=== PATIENT | female | born 1990 | race Caucasian/White ===

== ENCOUNTER 2016-09-26 10:43 | Emergency (ER) | payer MEDICAID ==
[2013-08-30 22:11] VITALS: BMI 32.3
[~2016-09-26 10:43] MED LIST: HYDROCODON-ACE1 EAC7 PO
== END 2016-09-26 11:34 | disposition home or self-care (01) ==
LOC: D.ER 10:43
DX: S76.911A Strain of unspecified muscles, fascia and tendons at thigh level, right thigh, initial encounter (principal); X58.XXXA Exposure to other specified factors, initial encounter; Y93.89 Activity, other specified; Y92.89 Other specified places as the place of occurrence of the external cause

== ENCOUNTER 2018-10-10 12:01 | Emergency (ER) | payer MEDICAID ==
[~2018-10-10] VITALS: Ht 167.6 cm; Wt 90.9 kg
[2018-10-10 12:11] VITALS: Ht 167.6 cm; Wt 90.9 kg
[2018-10-10] MEDS ORDERED: ZOFRAN ODT4 MG/UDTAB PO (13:04)
[2018-10-10] MEDS ORDERED: LOMOTIL 2.5-0.1 EAC1 PO (13:04)
[2018-10-10 14:32] VITALS: BP 112/52
== END 2018-10-10 14:33 | disposition home or self-care (01) ==
LOC: D.ER 12:01
DX: R11.10 Vomiting, unspecified (principal); R19.7 Diarrhea, unspecified

== ENCOUNTER 2019-02-04 18:57 | Emergency (ER) | payer MEDICAID ==
[~2019-02-04] VITALS: Ht 167.6 cm; Wt 86.4 kg
[~2019-02-04 18:57] MED LIST changes: +LOMOTIL 2.5-0.1 EAC1 PO; +ZOFRAN ODT4 MG/UDTAB PO
[2019-02-04 19:02] VITALS: Ht 167.6 cm; Wt 86.4 kg
[2019-02-04 19:31] LABS: BASOPHILS 0.3 % (0-2); HEMATOCRIT 38.9 % (36.0-48.0); IMMATURE GRANULOCYTES 0.2 % (0-5); LYMPHOCYTES 31.6 % (15-50); MCH 31.4 pg (26.0-34.0); MCHC 33.4 g/dL (31.0-37.0); MEAN PLATELET VOLUME 10.2 fL (7.4-10.4); MONOCYTES 7.8 % (2-11); NEUTROPHILS 57.1 % (40-80); RBC 4.14 10x6/uL (4.00-5.40); RDW 13.7 % (11.5-14.5); WBC 15.2 10x3/uL (4.8-10.8)
[2019-02-04 19:34] LABS: PLATELET COUNT 389 10x3/uL (130-400)
[2019-02-04 19:39] LABS: APPEARANCE CLEAR (CLEAR); BILIRUBIN NEGATIVE (NEGATIVE); COLOR YELLOW (YELLOW); GLUCOSE NEGATIVE (NEGATIVE); HCG URINE NEGATIVE (NEGATIVE); KETONE NEGATIVE (NEGATIVE); NITRITE NEGATIVE (NEGATIVE); PROTEIN NEGATIVE (NEGATIVE); UROBILINOGEN NORMAL (NORMAL)
[2019-02-04 19:47] LABS: CALC OSMOLALITY 279 mosm/kg (275-300); CALCIUM 8.9 mg/dL (8.5-10.1); CARBON DIOXIDE 27.4 mmol/L (21.0-32.0); CHLORIDE - SERUM 105 mmol/L (98-107); CREATININE - SERUM 0.8 mg/dL (0.6-1.3); GLUCOSE 87 mg/dL (74-106); SODIUM 140 mmol/L (136-145); UREA NITROGEN 19 mg/dL (7-18); eGFR NON AFRICAN AMERICAN > 90 mL/min (90-120)
[2019-02-04 19:55] LABS: ALKALINE PHOSPHATASE 97 U/L (46-116); ALT (SGPT) 33 U/L (10-68); AMYLASE - SERUM 93 U/L (25-115); BILIRUBIN - TOTAL 0.12 mg/dL (0.2-1.3); LIPASE 100 U/L (73-393); PROTEIN - SERUM 7.8 g/dL (6.4-8.2)
[2019-02-04 19:58] LABS: TROPONIN-I < 0.017 ng/mL (0.000-0.060)
[2019-02-04] MEDS ORDERED: HYDROCODONE-A1 UDTA2 PO ×2 (22:54→23:00)
[2019-02-04] MEDS ORDERED: VIBRAMYCIN 100100 MG PO (22:54)
[2019-02-04 23:45] VITALS: BP 130/89
== END 2019-02-04 23:42 | disposition home or self-care (01) ==
LOC: D.ER 18:57
PROVIDERS: Emergency Medicine
DX: N73.9 Female pelvic inflammatory disease, unspecified (principal)

== ENCOUNTER 2019-02-19 11:27 | Day surgery (SDC) | payer MEDICAID ==
[~2019-02-19] VITALS: Ht 167.6 cm; Wt 90.9 kg
[~2019-02-19 11:27] MED LIST changes: +HYDROCODONE-A1 UDTA2 PO; +VIBRAMYCIN 100100 MG PO
[2019-02-19 12:15] LABS: CALC OSMOLALITY 277 mosm/kg (275-300); CALCIUM 8.8 mg/dL (8.5-10.1); CARBON DIOXIDE 21.8 mmol/L (21.0-32.0); CHLORIDE - SERUM 107 mmol/L (98-107); CREATININE - SERUM 0.6 mg/dL (0.6-1.3); GLUCOSE 92 mg/dL (74-106); POTASSIUM - SERUM 3.9 mmol/L (3.5-5.1); SODIUM 140 mmol/L (136-145); UREA NITROGEN 9 mg/dL (7-18); eGFR NON AFRICAN AMERICAN > 90 mL/min (90-120)
[2019-02-19 12:24] LABS: BASOPHILS 0.3 % (0-2); EOSINOPHILS 2.7 % (0-7); HEMATOCRIT 40.1 % (36.0-48.0); HEMOGLOBIN 13.4 g/dL (12-16); IMMATURE GRANULOCYTES 0.2 % (0-5); LYMPHOCYTES 23.4 % (15-50); MCH 31.2 pg (26.0-34.0); MCHC 33.4 g/dL (31.0-37.0); MCV 93.5 fL (80.0-100.0); MEAN PLATELET VOLUME 10.5 fL (7.4-10.4); MONOCYTES 7.3 % (2-11); NEUTROPHILS 66.1 % (40-80); PLATELET COUNT 394 10x3/uL (130-400); RBC 4.29 10x6/uL (4.00-5.40); RDW 13.5 % (11.5-14.5); WBC 11.4 10x3/uL (4.8-10.8)
[2019-02-19 12:25] LABS: ALBUMIN 3.9 g/dL (3.4-5.0); ALKALINE PHOSPHATASE 92 U/L (46-116); ALT (SGPT) 26 U/L (10-68); AMYLASE - SERUM 94 U/L (25-115); BILIRUBIN - TOTAL 0.24 mg/dL (0.2-1.3); LIPASE 81 U/L (73-393); TROPONIN-I < 0.017 ng/mL (0.000-0.060)
[2019-02-19 12:32] VITALS: BP 106/61
[2019-02-19 12:46] LABS: APPEARANCE SL CLDY (CLEAR); BACTERIA MODERATE /hpf (NEGATIVE); BILIRUBIN NEGATIVE (NEGATIVE); COLOR PINK (YELLOW); EPITHELIAL CELLS 0-5 /hpf (0-5); GLUCOSE NEGATIVE (NEGATIVE); KETONE NEGATIVE (NEGATIVE); MUCUS <1+ /lpf (NONE SEEN); NITRITE NEGATIVE (NEGATIVE); PROTEIN 1+ mg/dL (NEGATIVE); WHITE CELLS - URINE OCC /hpf (NEGATIVE)
[2019-02-19 12:55] LABS: HCG URINE NEGATIVE (NEGATIVE)
[2019-02-19 13:30] VITALS: BP 113/65
[2019-02-19 14:30] VITALS: BP 113/78
[2019-02-19 15:06] LABS: INR 2.39 (0.85-1.17); PROTIME 25.4 SECONDS (11.6-15.0)
[2019-02-19 15:30] VITALS: BP 113/65
--- NOTE | 2019-02-19 17:30 | NUR ---
PT ORIGINAL IV HAD TO BE DISCONTINUED DUE TO SITE PAIN. RESTARTED IN R WRIST - 20G - PATENT INFUSING WITH NS - NO INFILTRATE NOTED.
--- NOTE | 2019-02-19 18:05 | NUR ---
RECEIVED FROM ER PER WC, WELL NOURISHED FEMALE IN NO ACUTE DISTRESS. SALINE LOCK LEFT WRIST FLUSHED W/SALINE EASILY THEN LOCKED. CALL RECEIVED FROM OR TO SEE IF THEY CAN COME GET PATIENT BEFORE ADMISSION ASSESSMENTS DONE. CALL REFERRED TO CHARGE NURSEL SEE MOTT.
--- NOTE | 2019-02-19 18:15 | NUR ---
RETURNED FROM BATHROOM, STATING SHE VOIDED. VSS: 119/69, 97.6 ORAL, HR 60, RR 20, O2 SAT 99% ON ROOM AIR. REPORTS PAIN AT LEVEL 6 ON 0-10 SCALE. SILVER COLORED METAL RINGS GIVEN TO WELL NOSE RING.
--- NOTE | 2019-02-19 19:05 | NUR ---
PT TRANSPORTED OFF UNIT PER O.R. STAFF AT THIS TIME.
--- NOTE | 2019-02-19 19:15 | NUR ---
TO O.R. PER BED. REMAINS NPO AND IN STABLE CONDITION. LEFT WRIST IV PATENT W/SALINE. FAMILY AT BEDSIDE.
[2019-02-19 21:01] VITALS: BP 122/70
[2019-02-19 21:35] VITALS: BP 119/60; Ht 167.6 cm; Wt 90.9 kg
--- NOTE | 2019-02-19 22:04 | NUR ---
PT C/O NAUSEA. PHENERGAN GIVEN PER ORDERS TO LT DELTOID. ADVISED PT TO EAT ICE CHIPS ONLY UNTIL NAUSEA SUBSIDES.
--- NOTE | 2019-02-19 22:40 | NUR ---
PT REPORTS NAUSEA SUBSIDED AND SHE HAS EATEN PUDDING AND HALF A SANDWICH. PT READY TO GO HOME. D/C INSTRUCTIONS PRINTED AT THIS TIME.
--- NOTE | 2019-02-19 23:00 | NUR ---
D/C INSTRUCTIONS EXPLAINED, SIGNED, AND WITNESSED. PIV TO LT WRIST D/C'D. PRESSURE DRESSING APPLIED TO SITE. SCHEDULED MEDICATION WELL PERCOCET 5/325 MG X2 TABS GIVEN FOR PAIN RATED 4/10 AT THIS TIME. PT UP TO DRESS, TO W/C AND TRANSPORTED VIA W/C TO AWAITING VEHICLE FOR RIDE HOME. ADVISED PT OF 2 24 HR PHARMACIES LOCALLY AND TO GET PRESCRIPTIONS FILLED. UNDERSTANDING VERBALIZED. PT IN NO APPARENT DISTRESS.
--- NOTE | 2019-02-24 09:17 | OP ---
PATIENT NAME: JEWELS JETER MEDICAL RECORD: [id number] :89 LOCATION:D.OPS ADMISSION DATE: SURGEON: ALBARO HENLEY MD DATE OF OPERATION: 02/19/2019 PREOPERATIVE DIAGNOSIS: Subacute pelvic pain. POSTOPERATIVE DIAGNOSES: 1. Subacute pelvic pain. 2. 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 SURGEON: Albaro Henley MD PROCEDURE: Diagnostic laparoscopy. SURGEON: Albaro Henley MD PRESIDENT [facility]CIAL INSTIT[facility]: [facility]. ANESTHESIA: General. FINDINGS: Uterus is enlarged and boggy. The tubes are unremarkable. There are clear fluid-filled lesions covering the uterine fundus, likely representing early endometriosis. There are no obvious powder burn lesions, what was visualized of the abdominal anatomy was unremarkable. SPECIMENS REMOVED: None. SPECIMEN DISPOSITION: None applicable FLUIDS: 1 liter lactated Ringer's. URINE OUTPUT: Quantity sufficient void prior to this procedure. COMPLICATIONS: None. ESTIMATED BLOOD LOSS: Minimal. DRAINS: None. INDICATIONS: The patient is a 28-year-old female who presents to the Emergency Room with intense pelvic pain. The patient has also reported dysmenorrhea. The patient states the pain is increased with her cycle. The patient has been evaluated by [facility] and the pain continued. The recommendation was diagnostic laparoscopy. Due to the subacute nature of her pain and after evaluation, the patient was consented for a diagnostic laparoscopy. DESCRIPTION OF PROCEDURE: After informed consent was assured, the patient was taken to the operating room where anesthetic was obtained. The patient was placed in Yellofin stirrups and prepped and draped. Incision was made at the umbilicus to accommodate a 5-mm trocar. This trocar was inserted without difficulty. The visualization of the pelvis with the above findings. After visualization of both ovarian fossa, the cul-de-sac as well as the anterior pouch the pneumoperitoneum was released and the trocars were OPERATIVE REPORT [id number] JEWELS JETER removed. The skin reapproximated with subcuticular stitch. Sponge, lap, needle counts were correct times 2. The patient went to the recovery room in stable condition. TRANSINT:[id number] Voice Confirmation ID: [id number] DOCUMENT ID: [id number] ALBARO HENLEY MD at 0917 CC: [id number] DICTATION DATE: 02/19/192019 FIXED INCOME PORTFOLIO MANAGER: 02/19/19 2250 DEP SDC 02/19/19 [facility] [address] [place] [address]
== END 2019-02-19 23:00 | disposition home or self-care (01) ==
LOC: OBSVTIME → D.ER 11:27 → D.OPS 11:27 → EDSTATUS 14:00 → D.ER 14:33 → D.WS 14:33 → OBSVTIME 14:33 → D.ER 17:56 → D.WS 18:21 → D.OPS 23:00 → D.WS 23:00
PROVIDERS: Family Medicine; ATTEND Obstetrics & Gynecology
DX: R10.2 Pelvic and perineal pain (principal)